=== PATIENT | female | born 1995 | race Two or more races ===

== ENCOUNTER 2016-08-14 10:54 | Emergency (ER) | payer OTHER ==
[2016-08-14 10:55] LABS: INFLUENZA A NEG (NEG); INFLUENZA B NEG (NEG)
== END 2016-08-14 11:25 | disposition home or self-care (01) ==
LOC: CFTX 10:54
PROVIDERS: Emergency Medicine
DX: J02.9 Acute pharyngitis, unspecified (principal); R50.9 Fever, unspecified
CPT/HCPCS: 87651; 87804; 96372; 99283; J0561